=== PATIENT | female | born 1995 | race Caucasian/White ===

== ENCOUNTER 2016-05-12 16:34 | Emergency (ER) | payer OTHER ==
[~2016-05-12] VITALS: Ht 175.2 cm; Wt 90.7 kg
[~2016-05-12 16:34] MED LIST: BACTRIM DS 8001 TA1 PO; BENADRYL25 M2 PO; BENADRYL50 MG PO; CEPHALEXIN500 M1 PO; LIDEX 0.05% CRE15 GM T; LIDEX 0.05% GEL60 GM PO; MEDROL DOSEPAK4 MG PO; NORCO 5-325 TA1 EACH PO; PERCOCET 325 MG1 TA5 PO; ZOFRAN4 MG PO
[2016-05-12] MEDS ORDERED: SPRINTEC 35 MCG1 TA1 PO (16:43)
[2016-05-12] MEDS ORDERED: NAPROSYN500 MG PO (17:51)
[2016-05-12] MEDS ORDERED: CYCLOBENZAPRINE10 MG PO (17:51)
== END 2016-05-12 17:57 | disposition home or self-care (01) ==
LOC: ED 16:34
DX: S16.1XXA Strain of muscle, fascia and tendon at neck level, initial encounter (principal); F17.200 Nicotine dependence, unspecified, uncomplicated; Z88.7 Allergy status to serum and vaccine; Z91.030 Bee allergy status; V89.2XXA Person injured in unspecified motor-vehicle accident, traffic, initial encounter; Y93.89 Activity, other specified; Y92.413 State road as the place of occurrence of the external cause; Y99.9 Unspecified external cause status

== ENCOUNTER 2016-10-15 17:16 | Emergency (ER) | payer OTHER ==
[~2016-10-15 17:16] MED LIST changes: +CYCLOBENZAPRINE10 MG PO; +NAPROSYN500 MG PO; +SPRINTEC 35 MCG1 TA1 PO
[2016-10-15] MEDS ORDERED: BACTRIM DS 8001 TA1 PO (17:38)
[2016-10-15] MEDS ORDERED: KEFLEX500 M1 PO (17:38)
[2016-10-15] MEDS ORDERED: NAPROSYN500 MG PO (17:38)
== END 2016-10-15 17:44 | disposition home or self-care (01) ==
LOC: ED 17:16
DX: L03.113 Cellulitis of right upper limb (principal); R03.0 Elevated blood-pressure reading, without diagnosis of hypertension; F17.200 Nicotine dependence, unspecified, uncomplicated; Z88.7 Allergy status to serum and vaccine; Z91.030 Bee allergy status

== ENCOUNTER 2018-05-19 00:11 | Emergency (ER) | payer OTHER ==
[~2018-05-19] VITALS: Ht 180.3 cm; Wt 81.6 kg
[~2018-05-19 00:11] MED LIST changes: +KEFLEX500 M1 PO
[2018-05-19] MEDS ORDERED: AMOXICILLIN500 M2 PO (00:43)
== END 2018-05-19 01:00 | disposition home or self-care (01) ==
LOC: ED 00:11
DX: J02.9 Acute pharyngitis, unspecified (principal); Z91.030 Bee allergy status; Z88.7 Allergy status to serum and vaccine; Z79.2 Long term (current) use of antibiotics; Z79.899 Other long term (current) drug therapy

== ENCOUNTER 2023-08-08 15:05 | Emergency (ER) | payer OTHER ==
[~2023-08-08] VITALS: Ht 175.2 cm; Wt 89.8 kg
[~2023-08-08 15:05] MED LIST changes: +AMOXICILLIN500 M2 PO
[2023-08-08] MEDS ORDERED: IBUPROFEN 800 MG TAB PO ONE (15:35)
[2023-08-08] MEDS ORDERED: AVPAK AZITHROM250 M1 PO (16:32)
== END 2023-08-08 16:37 | disposition home or self-care (01) ==
LOC: ED 15:05
DX: J40 Bronchitis, not specified as acute or chronic (principal); Z20.822 Contact with and (suspected) exposure to COVID-19; M79.10 Myalgia, unspecified site; Z91.030 Bee allergy status; Z88.7 Allergy status to serum and vaccine; Z91.013 Allergy to seafood; F17.200 Nicotine dependence, unspecified, uncomplicated